=== PATIENT | male | born 1965 | race Caucasian/White ===

== ENCOUNTER 2023-09-30 12:37 | Inpatient (IN) | payer BC, SELFPAY ==
[2023-09-30] VITALS (7 sets, daily range): BP systolic 107–128; BP diastolic 64–86; BMI 24.5
[2023-09-30 10:11] LABS: % Basophils 0.9 % (0-2); % Immature Granulocytes 0.3 % (0-0.5); % Lymphocytes 31.1 % (20.5-51.1); % Monocytes 9.8 % (1.7-9.3); % Neutrophils 53.9 % (42.2-75.2); Absolute Basophils 0.1 10^3/uL (0-0.2); Absolute Eosinophils 0.3 10^3/uL (0-0.7); Absolute Monocytes 0.6 10^3/uL (0.1-0.6); Absolute Neutrophils 3.5 10^3/uL (1.4-6.5); Hematocrit 44.8 % (39.0-52.0); Hemoglobin 15.5 g/dL (13.0-18.0); Mean Corp Hgb Conc. 34.6 g/dL (33.0-37.0); Mean Corpuscular Hgb 30.9 pg (27.0-31.0); Mean Corpuscular Volume 89.2 fL (80.0-94.0); Mean Platelet Volume 9.2 fL (7.4-10.4); Nucleated Red Blood Cells % 0 % (-); Platelet Count 282 10^3/uL (130-400); Red Blood Cell Count 5.02 10^6/uL (4.70-6.10); Red Cell Dist. Width 12.2 % (11.5-14.5); White Blood Cell Count 6.5 10^3/uL (4.8-10.8)
--- NOTE | 2023-09-30 10:40 | ED.GENMED ---
History of Present Illness
<Essie Galvan PA-C - Last Filed: 09/30/23 18:25>
General
Chief Complaint: Numbness
Source: patient
Exam Limitations: none
Time Seen by Provider: 09/30/23 10:23
Nursing documentation reviewed up to this point in time: agreed with
Travel History
Have you had any contact with someone who has COVID-19?: No
Do you have any symptoms of coronavirus? Fever > 100 degrees, chills, cough, shortness of breath, sore throat, loss of taste or smell, muscle aches, or headache?: No
History of Present Illness
History of Present Illness:
Patient is a 57 year old male presenting for evaluation of brief episode of left sided numbness occurring earlier this morning. Patient states that he was driving to work around 715 this morning when he noticed that his left arm and left leg had a
numbness sensation. He reports 'I was watching my left arm and left leg move but did not feel as if I was moving them'. This occurred while he was driving and then he pulled into [id number]. He proceeded to call his girlfriend and return home. Shortly
after arriving home his symptoms seem to improve. The symptoms were not associated with any chest pain, shortness of breath, weakness, dizziness, visual changes, headache.
Patient reports that in total the symptoms probably lasted around 20 minutes. At this point patient is asymptomatic. He has had no difficulty walking.
Patient has never experienced symptoms like this before. He does endorse high cholesterol but follows with primary care and has not been started on medication for this.
Past History
<Essie Galvan PA-C - Last Filed: 09/30/23 18:25>
Past History
ED Past Medical History: Other (Kidney stones)
ED Past Surgical History: Urological
Social History
Tobacco: Other
Alcohol: Other
Drug: None
Personal:
Living: with family
Employment: Other
Family History
Family History: Other
Phy Exam
<Essie Galvan PA-C - Last Filed: 09/30/23 18:25>
Physical Exam
Physical Exam:
General: Well appearing and non-toxic
Vitals: Vital signs stable, afebrile
HEENT: Atraumatic, normocephalic; pupils equal round reactive to light bilaterally, extraocular muscles intact, protecting airway
Neck: appears supple
CV: Regular rate and rhythm, heart sounds normal, no evidence of cyanosis
Resp: No evidence of respiratory distress, lungs clear, no accessory muscle use
Abd: Soft, nontender non-distended
Extremities: No deformities, no evidence of cyanosis or edema; strength 5 out of 5 in upper and lower extremities, sensation fully intact in upper and lower extremity
Neuro: alert and oriented to person place time, speech normal, no focal motor deficits, no focal neurologic deficits, normal [id number]-km-[id number], cranial nerves II through XII intact bilaterally
Psych: Normal affect
Skin: Intact, no rashes
Course
<Essie Galvan PA-C - Last Filed: 09/30/23 18:25>
Orders/Labs/Results
Orders:
Orders
09/30/23 09:32
CT Head W/o Iv Contrast Urgent
Comment:
Reason For Exam: right sided numbness. now resolved
09/30/23 10:00
Cardiovascular Evaluation Urgent
Comment: ADD ON
Complete Blood Count/With Diff Urgent
Comprehensive Metabolic Panel Urgent
Erythrocyte Sed Rate Urgent
Comment: ADD ON
Ferritin Urgent
Comment: ADD ON
Folate Urgent
Comment: ADD ON
TSH Reflex To Free T4 Urgent
Comment: ADD ON
Vitamin B12 Urgent
Comment: ADD ON
09/30/23 11:20
NEUROLOGY CONSULT Urgent
Consulting Provider: Jeff Duarte
Was physician already notified: Yes
Reason for consult: TIA symptoms
09/30/23 11:29
Add On- LAB Routine
Comments:: Please add to today's labs or draw as routine
Tests Added?: TSH reflex, Ferritin, Folate, Vit. B12, ESR, UDS,lipid profile
09/30/23 11:41
MR Brain Without Contrast Routine
Comment:
Reason For Exam: Left-sided sensation change
Recent pill cam endoscopy?: No
Lorazepam [Ativan] 1 mg PO NOW STA
09/30/23 11:56
CT Head & Neck Angio W/wo IV Routine
Comment:
Reason For Exam: stenosis
09/30/23 12:23
Urine Drug Abuse Screen Routine
09/30/23 12:29
Admit/Transfer Patient As Directed
Co-Sign Provider:
Level of Care: Inpatient admission
Assign to:: Telemetry
Physician / Group: Hospitalist
Diagnosis: Stroke
Reason for Telemetry: CVA/TIA
Date to Stop Telemetry: 10/03/23
Time to Stop Telemetry: 11:00
Reason for Hospitalization: .
Expected length of stay greater than two midnights?: Yes
ELOS- Estimated Length of Stay in days: 3
I certify the patient meets the requirements for IP care: Yes
Code Status As Directed
Resuscitation Status: Full Code
09/30/23 13:00
Aspirin Chewable [Low Strength Aspirin] 81 mg PO DAILY
Clopidogrel Bisulfate [Plavix] 75 mg PO DAILY
09/30/23 14:49
Acetaminophen [Tylenol] 1,000 mg PO Q6HPRN PRN
Ondansetron Injectable [Zofran] 4 mg IV Q6HPRN PRN
09/30/23 14:49
Echo 2D MMode Color/Doppler [Echo 2D MMode Color/Doppler] Routine
Reason for Study: Stroke
Ot Eval And Treat Routine
Pt Eval And Treat Routine
Activity Level: As Tolerated
Speech Therapy Eval & Treat Routine
DX Deep Vein Thrombosis Video Routine
09/30/23 Dinner
Cholesterol Lowering
At Your Request: Full Participation
Does patient need a safe tray?: No
09/30/23 20:00
Heparin 5,000 units SC Q12
09/30/23 22:00
Lorazepam [Ativan] 0.5 mg PO Q8HPRN PRN
10/03/23 11:00
DC Protocol for Telemetry ONCE
Abnormal Lab Results
09/30/23
10:00
Monocytes % 9.8 H %
(1.7-9.3)
Total Cholesterol 202 H mg/dl
(50-199)
Folate > 20.0 H ng/ml
(2.76-20)
09/30/23 10:00
09/30/23 10:00
Vital Signs
Initial and Last Documented VS:
Initial Vital Signs
Temp Pulse Resp BP Pulse Ox
97.9 F 56 18 122/86 97
09/30/23 08:22 09/30/23 08:22 09/30/23 08:22 09/30/23 08:22 09/30/23 08:22
Last Documented Vital Signs
Temp Pulse Resp BP Pulse Ox
98.7 F 56 14 109/64 96
09/30/23 15:05 09/30/23 15:05 09/30/23 15:05 09/30/23 15:05 09/30/23 15:05
<Jordy Centeno MD - Last Filed: 09/30/23 12:03>
Orders/Labs/Results
Orders:
Orders
09/30/23 09:32
CT Head W/o Iv Contrast Urgent
Comment:
Reason For Exam: right sided numbness. now resolved
09/30/23 10:00
Cardiovascular Evaluation Urgent
Comment: ADD ON
Complete Blood Count/With Diff Urgent
Comprehensive Metabolic Panel Urgent
Erythrocyte Sed Rate Urgent
Comment: ADD ON
Ferritin Urgent
Comment: ADD ON
Folate Urgent
Comment: ADD ON
TSH Reflex To Free T4 Urgent
Comment: ADD ON
Vitamin B12 Urgent
Comment: ADD ON
09/30/23 11:20
NEUROLOGY CONSULT Urgent
Consulting Provider: Jeff Duarte
Was physician already notified: Yes
Reason for consult: TIA symptoms
09/30/23 11:29
Add On- LAB Routine
Comments:: Please add to today's labs or draw as routine
Tests Added?: TSH reflex, Ferritin, Folate, Vit. B12, ESR, UDS,lipid profile
09/30/23 11:41
MR Brain Without Contrast Routine
Comment:
Reason For Exam: Left-sided sensation change
Recent pill cam endoscopy?: No
Lorazepam [Ativan] 1 mg PO NOW STA
09/30/23 11:56
CT Head & Neck Angio W/wo IV Routine
Comment:
Reason For Exam: stenosis
09/30/23 12:23
Urine Drug Abuse Screen Routine
09/30/23 12:29
Admit/Transfer Patient As Directed
Co-Sign Provider:
Level of Care: Inpatient admission
Assign to:: Telemetry
Physician / Group: Hospitalist
Diagnosis: Stroke
Reason for Telemetry: CVA/TIA
Date to Stop Telemetry: 10/03/23
Time to Stop Telemetry: 11:00
Reason for Hospitalization: .
Expected length of stay greater than two midnights?: Yes
ELOS- Estimated Length of Stay in days: 3
I certify the patient meets the requirements for IP care: Yes
Code Status As Directed
Resuscitation Status: Full Code
09/30/23 13:00
Aspirin Chewable [Low Strength Aspirin] 81 mg PO DAILY
Clopidogrel Bisulfate [Plavix] 75 mg PO DAILY
09/30/23 14:49
Acetaminophen [Tylenol] 1,000 mg PO Q6HPRN PRN
Ondansetron Injectable [Zofran] 4 mg IV Q6HPRN PRN
09/30/23 14:49
Echo 2D MMode Color/Doppler [Echo 2D MMode Color/Doppler] Routine
Reason for Study: Stroke
Ot Eval And Treat Routine
Pt Eval And Treat Routine
Activity Level: As Tolerated
Speech Therapy Eval & Treat Routine
DX Deep Vein Thrombosis Video Routine
09/30/23 Dinner
Cholesterol Lowering
At Your Request: Full Participation
Does patient need a safe tray?: No
09/30/23 20:00
Heparin 5,000 units SC Q12
09/30/23 22:00
Lorazepam [Ativan] 0.5 mg PO Q8HPRN PRN
10/03/23 11:00
DC Protocol for Telemetry ONCE
Abnormal Lab Results
09/30/23
10:00
Monocytes % 9.8 H %
(1.7-9.3)
Total Cholesterol 202 H mg/dl
(50-199)
Folate > 20.0 H ng/ml
(2.76-20)
09/30/23 10:00
09/30/23 10:00
Vital Signs
Initial and Last Documented VS:
Initial Vital Signs
Temp Pulse Resp BP Pulse Ox
97.9 F 56 18 122/86 97
09/30/23 08:22 09/30/23 08:22 09/30/23 08:22 09/30/23 08:22 09/30/23 08:22
Last Documented Vital Signs
Temp Pulse Resp BP Pulse Ox
98.7 F 56 14 109/64 96
09/30/23 15:05 09/30/23 15:05 09/30/23 15:05 09/30/23 15:05 09/30/23 15:05
<Essie Galvan PA-C - Last Filed: 09/30/23 18:25>
MDM/Problems Addressed
Differential Diagnosis Includes:
TIA, CVA, hyperlipidemia, anxiety, neuropathy, etc.
MDM/Problems Addressed:
Patient is a 57-year-old male presenting for evaluation following brief episode of left arm and leg numbness while driving earlier today. Symptoms started around 7:15 AM, lasted approximately 20 minutes and then resolved. He denies any dizziness,
chest pain, shortness of breath, headache, visual changes. He is walking without difficulty. He is completely asymptomatic in emergency department today. Physical exam as documented above. Patient is hemodynamically stable. No focal neurologic
deficits on exam. Normal finger-nose. CBC and CMP without any clinically significant abnormalities.
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 No acute abnormalities
Given he may be higher risk based on prior incident found on CT�discussed case with neurology. Neurology evaluated patient at bedside, recommended MRI and admission for CVA workup, will start patient on Plavix and aspirin. MRI pending. Patient
expressed that he thought he was being discharged following MRI. Advised patient to wait for MRI results and can plan for disposition at that point. Patient is agreeable.
MRI shows small focus of acute to subacute infarction involving right parietal lobe. Discussed with neurology. They are ordering CTA of head/neck. Patient will be admitted for further CVA workup. Patient is agreeable to this plan.
Chronic conditions affecting care:
Hyperlipidemia
Acute Exacerbation and/or Progression of Chronic Illness:
TIA
<Essie Galvan PA-C - Last Filed: 09/30/23 18:25>
*Radiology
Radiology exam reviewed: radiology read reviewed
*Pulse Oximetry
Patient hypoxic: no
*Field Crop Farmer Interpretation
Rate: normal
Interpretation: normal
Heart Rate: 58
Rhythm: sinus
*Critical Care Note
Total Time (30-74mins, 75-104mins- exclusive of procedures): Not Applicable
ED Attending Note
<Essie Galvan PA-C - Last Filed: 09/30/23 18:25>
-
Portions of this chart may have been created with voice recognition software.� Occasional wrong word or��sound alike� substitutions may have occurred due to the inherent limitations of voice recognition software.
<Jordy Centeno MD - Last Filed: 09/30/23 12:03>
ED Attending Note
I performed the substantive portion of visit, reviewed & personally made and approve the management plan that is documented in note by myself or GERARD.: Yes
ED Attending Note:
Pt without any significant past medical history, presents to ED secondary to sudden onset of left arm and left leg numbness sensation while driving this morning, lasted approximately 20 minutes with spontaneous resolution. Denies headache. Denies
dizziness. Denies blurred vision. Denies weakness. Denies difficulty speech. Denies recent illness. Denies recent change in diet or medications. Of note, patient reports having had 'vertigo' approximately [address] head: Old cerebellar infarct, without any acute findings.
Patient evaluated in ED by Dr. Duarte, neurology. Recommends admission for further evaluation and treatment, with clinical concern for potential TIA versus CVA. Recommends starting aspirin and Plavix.
Discharge Plan
Departure
Patient Disposition: Admit
Date of Disposition: 09/30/23
Time of Disposition: 12:18
Presentation/result/management discussed w/ accepting MD/DO: Hospitalist
Discharge Problem:
TIA (transient ischemic attack)
Interventions
Interventions:
*Risk Screen - Suicide Last Done: 09/30/23 08:22
*General Assessment Last Done: 09/30/23 08:22
*Neglect/Abuse Screening Last Done: 09/30/23 08:22
ED- Fall Risk Assessment Last Done: 09/30/23 14:01
*ED COVID-19 Vaccine History Last Done: 09/30/23 08:22
*Nursing Disposition Last Done: 09/30/23 14:36
ED- Neurological Assessment Last Done: 09/30/23 14:15
Discharge Date and Time
Discharge Date/Time: 09/30/23 14:39
[2023-09-30 10:55] LABS: ALT (SGPT) 27 U/L (0-50); AST (SGOT) 34 U/L (17-59); Albumin 4.1 g/dl (3.5-5.0); Alkaline Phosphatase 79 U/L (38-126); Blood Urea Nitrogen 19 mg/dl (9-20); Calcium 9.7 mg/dl (8.4-10.2); Carbon Dioxide 27 mmol/L (22-30); Chloride 104 mmol/L (98-107); Glucose 70 mg/dl (70-99); Potassium 4.2 mmol/L (3.5-5.1); Sodium 141 mmol/L (135-145); Total Bilirubin 0.8 mg/dl (0.2-1.3); Total Protein 6.9 g/dl (6.3-8.2); eGFR > 60.00
--- NOTE | 2023-09-30 11:33 | CON.NEURO4 ---
Addendum entered and electronically signed by Jeff Duarte MD 09/30/23 12:32:
Studies reviewed.
I have personally examined the patient. I reviewed and agree with the OPERATOR MAINTAINER's Note.
My addenda:
Awake, alert, interactive. No acute distress.
Speech intact.
Follows 2-step requests w/o difficulty. No tremor.
Extra-ocular movements grossly intact.
Facial movements full and symmetric. Hearing intact to normal conversational volume.
Normal UE movements bilaterally.
Neck: full ROM.
Chest: no dyspnea
Heart: no JVD
Ext: (-) Clubbing, (-) Cyanosis, (-) Edema
IMPRESSIONS/RECOMMENDATIONS:
Abrupt onset of left arm more than leg numbness which spontaneously resolved and with a suggested left cerebellar stroke by CT of head
Differential diagnosis would include TIA based on timeframe of symptoms and absence of additional associated symptoms. He had no clear modifying factors at this time
Check CTA head and neck
Check MRI of head
Check blood work and urinalysis
Check lipid profile
Start ASA 81 mg and clopidogrel 75 mg, no clear need for loading dosing
Will continue to follow patient.
Original Note:
Documented by User: Denise Rosa NP 09/30/23 12:09
Consultation - Neurology 4
-
CONSULTING PHYSICIAN: Jeff Duarte MD
REFERRING PHYSICIAN: ER/Essie Galvan PA-C
DICTATED BY: ULISSES Westbrook
DATE/TIME OF REQUEST: 09/30/23
DATE/TIME OF CONSULTATION: 09/30/23
Reason for Consultation: Left-sided numbness
History of Present Illness:
This is a 57-year-old left-handed male who has presented to the hospital with report of transient left-sided numbness. Patient reports feeling in his usual state when he woke up this morning. He was driving to work at 0710 when he suddenly
developed numbness in his left arm and left leg which he describes as a novocaine sensation. It involved the entire left arm, not the face, and he is unsure how much of the left leg it involved. He drove home, and upon getting out of the car reports
it felt weird to walk due to the numbness. His gait was steady but slow. 20 minutes later, the feeling completely resolved and he went back to his baseline. He came to the ER for evaluation due to concern of stroke symptoms. CT head in the ER was
obtained and is negative of any acute abnormalities but is suggestive of an old left cerebellar ischemic infarct. He denies any headache, dizziness, vision changes, speech/swallow difficulty, nausea, weakness, chest pain, palpitations, and shortness
of breath. He does note one episode of vertigo years ago. He denies any history of TIA, stroke, or events like this in the past.
Past Medical History: Renal calculi, elevated PSA, one distant episode of vertigo, HLD
Surgical History: Lithotripsy
Family History: Reviewed and noncontributory.
Social History: Denies tobacco, alcohol, and illicit drug use.
Allergies: No known allergies.
Home Medications: See below.
Review of Symptoms:
Patient denies any fever, headache, chest pain, shortness of breath, GI or symptoms.
�Per the HPI.�All systems are reviewed negative except above.
Physical Exam:
The patient is afebrile, abdomen is nondistended, breathing is unlabored, skin is warm and dry, no edema.
NIH Stroke Scale:
I performed the NIH stroke scale on the patient on 09/30/23 at 1145. The patient scored 0 points on the NIH stroke scale assessment, which were assigned as follows: See below.
Neurologic Examination:
The patient is awake, alert and oriented x 3. He is able to follow commands and answer questions appropriately. There is no aphasia or dysarthria. On cranial nerve assessment, pupils are 3 mm bilateral, round and reactive to light and
accommodation. Visual murphy are full. Extraocular movements are intact. Facial sensations are intact and bilaterally symmetrical, there is no facial asymmetry. Hearing is intact bilaterally to normal conversation volume. Tongue palate and uvula are
midline. Sternocleidomastoid strengths are full bilaterally. Motor strengths are 5/5 bilateral upper and lower extremities on [employer] [place] scale. There is no drift or involuntary movement noted. Deep tendon reflexes are 2+ bilateral
upper and lower extremities and Babinski is absent bilaterally. Sensation of vibration is moderately reduced in distal bilateral lower extremities, sensation of pain is mildly reduced in distal bilateral lower extremities. V1 is diminished to cold
bilaterally compared to V3. There was no extinction noted on double simultaneous stimulation. Coordination is intact by finger to nose bilaterally.
Lab Results: See below.
Neuro Imaging:
1. CT Head 09/30/23: No acute abnormalities. Old 1 cm left cerebellar infarct.
Differentials for the patient's presentation include:
1. TIA or small stroke possible.
2. CT head imaging suggestive of an old left cerebellar ischemic stroke.
Patient has the following risk factors for their symptoms: Possible old cerebellar stroke.
IV Tenecteplase/IAT candidacy: No a candidate due to resolution of symptoms, NIHSS<6.
Recommendations:
-Initiate DAPT with aspirin 81mg and clopidogrel 75mg daily x21 days. After 21 days, discontinue clopidogrel and continue aspirin 81mg daily only, indefinitely.
-Permissive hypertension SBP<220, DBP<120 until 10/01/23 at 0700, then goal normotension.
-CTA head/neck ordered/pending.
-MRI brain noncontrast ordered/pending.
-LDL goal <70. Lipid panel pending.
-Goal normoglycemia.
-Checking blood work for metabolic abnormalities.
-NIHSS and neurological checks per unit guidelines.
-Provide patient with a stroke education packet.
-Will follow pending results.
Discussed patient care with: Dr. Duarte, the patient
Vital Signs and Labs
-
Vital Signs and Labs:
Vital Signs
Temp Pulse Resp BP Pulse Ox
97.9 F 65 21 107/72 100
09/30/23 08:22 09/30/23 11:15 09/30/23 11:15 09/30/23 11:00 09/30/23 11:15
Lab Results
09/30/23 10:00
09/30/23 10:00
Sodium 141 mmol/L (135-145) 09/30/23 10:00
Potassium 4.2 mmol/L (3.5-5.1) 09/30/23 10:00
BUN 19 mg/dl (9-20) 09/30/23 10:00
Glucose 70 mg/dl (70-99) 09/30/23 10:00
Calcium 9.7 mg/dl (8.4-10.2) 09/30/23 10:00
Medications
-
Active Medications
Generic Name Dose Route Start Last Admin
Trade Name Freq PRN Reason Stop Dose Admin
Aspirin 81 mg 09/30/23 13:00
Aspirin 81 Mg Chewable Tablet PO 10/28/23 12:59
DAILY RICARDO
Clopidogrel Bisulfate 75 mg 09/30/23 13:00
Clopidogrel 75 Mg Tablet PO 10/20/23 08:01
DAILY RICARDO
Home Medications
Medication Instructions Recorded
ondansetron 4 mg disintegrating 4 mg PO BID PRN nausea and 12/15/22
tablet vomiting #10 tabs
oxycodone-acetaminophen 10 mg-325 0.5 tab PO Q8H PRN pain #7 tabs 12/15/22
mg tablet (Percocet)
tamsulosin 0.4 mg capsule (Flomax) 0.4 mg PO DAILY #7 caps 12/15/22
NIH Stroke Score
Subsequent NIH Scale
Date of Subsequent NIH Scale: 09/30/23
Time of Subsequent NIH Scale: 11:45
NIH Stroke Score
Level of Consciousness: 0 - Alert
LOC Questions: 0-Answers both correctly
LOC Commands: 0-Performs both correctly
Best Horizontal Gaze: 0-Normal
Visual Murphy: 0=Normal, no visual loss
Facial Palsy: 0=Normal, symmetrical
Motor - Right Arm: 0=No drift 10 seconds
Motor - Left Arm: 0=No drift 10 seconds
Motor - Right Le-No drift 5 seconds
Motor - Left Le-No drift 5 seconds
Limb Ataxia: 0-Absent
Sensation: 0-Normal
Best Language: 0-No aphasia
Dysarthria: 0-Normal
Extinction and Inattention: 0-No abnormality
Total Score:: 0

Documented by User: Jeff Duarte MD 09/30/23 12:26
NIH Stroke Score
NIH Stroke Score
Total Score:: 0
--- NOTE | 2023-09-30 12:28 | HPS.HSE ---
Family Physician
-
Family Physician: Yany Damon
Chief Complaint
-
Left-sided numbness
History of Present Illness
57 years old male experienced left-sided numbness described as left arm and left leg numbness that was transient and lasted for a few minutes while he was driving to work. He presented to the emergency room. His symptoms had disappeared. The
patient denied chest pain or palpitation. No headache. Scan of the head did not show acute findings.
I saw the patient in the emergency room, he was anxious to go home. He wanted to have MRI done and go home.
Medical History
Past Medical History
Past Medical History: Reports Other (History of kidney stone)
Past Surgical History: Reports Other (No recent major surgery)
Social History
Tobacco: Non-smoker
Alcohol: Occasional
Drug: None
Employment: Employed
Family History
Family History: Not pertinent
Allergies / Home Medications
Allergies reflects when Allergies were last updated in [employer].
Home Medications with original date entered in [employer]
Allergy/Medication List:
Allergies
Allergy/AdvReac Type Severity Reaction Status Date / Time
No Known Allergies Allergy Verified 09/30/23 08:22
Home Medications
huwphmsenwjb-dtswiaxw-zsrbbj tablet 1 tab PO DAILY 09/30/23
sildenafil 100 mg tablet 100 mg PO DAILY PRN erectile dysfunction 09/30/23
Review of Systems
-
History Source: Patient
A 12 point ROS was completed and negative except as noted: Yes
Constitutional: Denies Fever or Chills
EENT: Denies Sore Throat or Mouth Pain
Respiratory: Denies Cough or Trouble Breathing
Cardiac: Denies Chest Pain or Palpitations
Abdomen/GI: Denies Abdominal Pain, Nausea or Bloody Stools
: Denies Dysuria or Incontinence
Musculoskeletal: Denies Joint Pain or Joint Swelling
Neurological: Denies Dizzy, Headache, Weakness or Numbness
Endocrine: Denies Temp Intolerance
Hematologic/Lymphatic: Denies Bruising
Psych: Denies Depression, Anxiety or Panic Disorder
Physical Exam
Vital Signs
Vital Signs
Temp Pulse Resp BP Pulse Ox
97.9 F 65 21 107/72 100
09/30/23 08:22 09/30/23 11:15 09/30/23 11:15 09/30/23 11:00 09/30/23 11:15
Physical Exam
General: Well Developed, Well Nourished, No Apparent Distress and Comfortable
HEENT: Moist mucous membranes, PERRLA, [place] Conjunctivae and No Ptosis
Respiratory: Clear; No Wheezes or Rales
Cardiac: S1/S2 and Regular Rhythm
GI: Non Tender and Non Distended
Rectal: No Maroon Stools
Genito-urinary: No costovertebral tender; No Bloody Urine
Musculoskeletal: No Clubbing, No Cyanosis and No Edema
Skin: Warm and Dry; No Jaundice
Neuro: Oriented, AO x 3, No Motor Deficits and Nonfocal/grossly intact; No Slurred Speech, Facial Droop or Tremors
Psych: Calm and Intact Judgment/Insight
Laboratory Results
-
09/30/23 10:00
09/30/23 10:00
Laboratory Results
Total Bilirubin 0.8 mg/dl (0.2-1.3) 09/30/23 10:00
AST 34 U/L (17-59) 09/30/23 10:00
ALT 27 U/L (0-50) 09/30/23 10:00
Alkaline Phosphatase 79 U/L (38-126) 09/30/23 10:00
Impression/Plan
-
IMPRESSION:
57 years old male presenting for transient left-sided numbness that lasted for minutes and disappeared.
#Left-sided numbness, rule out TIA
Currently the patient has no symptoms. Neurologic examination is nonfocal
Patient does not smoke, no history of coronary disease or heart disease.
Denies using illicit drugs
Discussed with neurology
Okay to do an MRI of the brain.
# Discharge plan
Patient is insisting on going home if his MRI is negative. I reviewed the benefit of observation 24 hours in hospital in setting of TIA. Patient verbalized understanding but requested to be discharged home. He reported that he would come back if
symptoms returned and he had good social support system outside the house. Discussed with ER doctor. Will follow,
Total time spent to see the patient, examine the patient on the floor, review data and lab results, discuss treatment plan with patient, neurology doctor, ER doctor and nursing staff around 75 minutes
[2023-09-30 12:44] LABS: HDL Cholesterol 63 mg/dl; LDL Cholesterol, Calculated 124 mg/dl; Total Cholesterol 202 mg/dl (50-199); Triglyceride 76 mg/dl (10-149); Very Low Density Lipoprotein 15 mg/dl (0-30)
--- NOTE | 2023-09-30 14:26 | EDRN ---
Dr. Centeno speaking with patient. Pt deciding if he wants to be admitted.
[2023-09-30 14:33] LABS: Erythrocyte Sed Rate 10 mm/hour (0-20)
--- NOTE | 2023-09-30 14:45 | PTCARENOTE ---
09/30- Patient transferred and oriented to unit without issue. AAOX3, Skin=warm/pink/dry, fully independent. NIH=0. No current complaints or requests.
[2023-09-30 14:50] LABS: TSH Reflex To Free T4 1.17 uIU/ml (0.47-4.68)
[2023-09-30] MEDS: PLAVIX 75 MG PO (15:16)
[2023-09-30] MEDS: LOW STRENGTH ASPIRIN 81 MG PO (15:16)
[2023-09-30] MEDS: LIPITOR 40 MG PO (15:17)
[2023-09-30 15:26] LABS: Folate > 20.0 ng/ml (2.76-20); Vitamin B12 925 pg/ml (239-931)
--- NOTE | 2023-09-30 15:29 | CM ---
Patient seen bedside with family, initial assessment completed. Patient reports he resides with his significant other in a multiple story home. Patient is employed, independent with ADLs/IADLs. Patient denies DME, VN, or SNF. Patient confirms PCP
Dr. Damon, pharmacy [facility]. Patient eager to discharge tomorrow. CM will continue to follow for discharge planning needs.
Plan; home no needs anticipated.
--- NOTE | 2023-09-30 20:35 | W.PN.UPDATE ---
Update Note
Progress Note Update
Patient requested to leave AMA. Risk versus benefits discussed with the patient. He decided to leave. AMA form signed and kept in the chart.
--- NOTE | 2023-09-30 21:08 | PTCARENOTE ---
Pt refusing to wait until tomorrow for ECHO to be done, stating 'I'll just leave tonight and come back tomorrow to get it done'. [facility] remains a 0. House SENIOR STATISTICAL PROGRAMMER Ash Mohan notified that pt is requesting to leave AMA. Pt signed AMA form after SENIOR STATISTICAL PROGRAMMER
Ash explained risks of leaving AMA when pt is admitted with signs of stroke. Pt verbalizes understanding of the risks of leaving AMA and still wants to leave. This RN went over the medications that pt has been prescribed while inpatient and
explained to pt that he would need to ask his PCP to get scripts for these medications since he is leaving AMA. Tele pack and IV removed. Belongings from room returned to pt.
--- NOTE | 2023-10-01 10:35 | W.DCSUMMARY ---
Discharge Summary
Discharge Data
Date of Admission: 09/30/23
Date of Discharge: 09/30/23
-
Pending Results: No
Hospital Course
57 years old male came to the hospital after experiencing left upper and lower extremities numbness. The episode lasted for few minutes and resolved completely. Patient was asymptomatic in the emergency room. He was evaluated by neurologist.
Head scan showed no acute findings. Neurologist recommended magnetic resonance imaging ( MRI) of the brain. Patient was anxious to go home because he felt normal and at his baseline. Patient agreed to stay in the hospital for MRI. MRI of the
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
occipital lobe. Patient was informed about the result by the emergency room physician. Patient agreed to stay in the hospital and to have further testing including head and neck angiogram with intravenous contrast recommended by neurologist. Head
and neck angiogram showed no evidence of focal stenosis or carotid dissection. Patient was admitted to the telemetry floor. He remained hemodynamically stable. Patient had dinner with no complications. On-call service was informed that patient
wanted to leave AGAINST MEDICAL ADVICE. Patient was advised and counseled but he declined to stay in the hospital and he left the hospital AGAINST MEDICAL ADVICE. He remained in a stable condition upon leaving the hospital.
Discharge Plan
-
Patient Disposition: Against Medical Advice
Referrals:
Yany Damon CRNP [Family Provider] -
Prescriptions:
No Action
sildenafil 100 mg Tablet
100 mg PO DAILY PRN (Reason: erectile dysfunction)
Centrum Silver Tablet
1 tab PO DAILY
Discharge Date and Time
Discharge Date/Time: 09/30/23 20:58
== END 2023-09-30 20:58 | disposition left against medical advice (07) | DRG 93 ==
LOC: 4 WEST ACU 12:37
PROVIDERS: Emergency Medicine; ADMITTING PHYSICIAN Internal Medicine; CONSULT PHYSICIAN Psychiatry & Neurology Neurology; EMERGENCY PHYSICIAN Emergency Medicine; FAMILY PHYSICIAN Nurse Practitioner Family
DX: R20.0 Anesthesia of skin (principal); Z79.02 Long term (current) use of antithrombotics/antiplatelets; Z79.82 Long term (current) use of aspirin; Z86.73 Personal history of transient ischemic attack (TIA), and cerebral infarction without residual deficits
CPT/HCPCS: 70450; 70496; 70498; 70551; 80053; 80061; 82607; 82728; 82746; 84443; 85025; 85652; 99284; Q9967